=== PATIENT | female | born 1995 | race American Indian/Alaskan Native ===

== ENCOUNTER 2017-09-11 18:59 | Outpatient (CLI) | payer BC ==
[2017-09-11 20:06] VITALS: BP 125/77
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
== END 2017-09-11 22:55 | disposition home or self-care (01) ==
LOC: EDSTATUS 20:26 → TRG 20:33 → LD 20:49 → TRG 22:55
PROVIDERS: ATTEND Obstetrics & Gynecology
DX: O26.892 Other specified pregnancy related conditions, second trimester (principal); R07.9 Chest pain, unspecified; V89.2XXD Person injured in unspecified motor-vehicle accident, traffic, subsequent encounter; Z3A.20 20 weeks gestation of pregnancy
CPT/HCPCS: 59025; 76815; 93005; 93010